=== PATIENT | female | born 1970 | race Caucasian/White ===

== ENCOUNTER → 2016-11-13 | Outpatient (CLI) | payer BC ==
--- NOTE | 2016-11-13 15:31 | REPMRS ---
Patient History The patient states she had a clinical breast exam in 11/29 Family history of premenopausal breast cancer in maternal cousin at age 43 and colorectal cancer in maternal uncle at age 50 or over. Digital Woman Screen Mammo: November 13, 2016 - Exam #: [id number] Bilateral CC and MLO view(s) were taken. Technologist: Chana Carcamo, Technologist Prior study comparison: October 22, 2015, digital woman screen mammo performed at [facility]. October 23, 2014, digital woman screen mammo performed at [facility]. FINDINGS: The breast tissue is heterogeneously dense. This may lower the sensitivity of mammography. There has been no change in the appearance of the mammogram from the prior studies. There is a moderate amount of residual fibroglandular tissue which is fairly symmetric. There is no interval development of dominant mass, areas of architectural distortion, or clustered microcalcification typical of malignancy. ASSESSMENT: BI-RADS/ACR category 1 mammogram. Negative. Recommendation Routine screening mammogram in 1 year (for women over age 40). This mammogram was interpreted with the aid of an FDA-approved computer-aided dectection system. Electronically Signed By: Koffi Rojas MD 11/13/16 1575
== END ==
LOC: M WHC 13:59
PROVIDERS: ATTEND Nurse Practitioner Family
DX: Z12.31 Encounter for screening mammogram for malignant neoplasm of breast (principal); Z80.3 Family history of malignant neoplasm of breast

== ENCOUNTER → 2016-11-13 | Outpatient (REF) | payer BC | LOC: M SFHCWAGY 14:41 | PROVIDERS: ATTEND Nurse Practitioner Family | DX: Z12.4 Encounter for screening for malignant neoplasm of cervix (principal); R87.610 Atypical squamous cells of undetermined significance on cytologic smear of cervix (ASC-US) ==

== ENCOUNTER 2017-03-13 07:30 | Outpatient (RCR) | payer BC | END 2017-03-15 | LOC: M OT 07:30 | PROVIDERS: ATTEND Physician Assistant Surgical | DX: Z51.89 Encounter for other specified aftercare (principal); M77.11 Lateral epicondylitis, right elbow ==

== ENCOUNTER 2017-03-29 09:08 | Outpatient (RCR) | payer BC | END 2017-04-14 | LOC: M OT 09:08 | PROVIDERS: ATTEND Physician Assistant Surgical | DX: Z51.89 Encounter for other specified aftercare (principal); M77.11 Lateral epicondylitis, right elbow ==

== ENCOUNTER → 2017-11-14 | Outpatient (CLI) | payer MEDICAID | LOC: M WHC 08:35 | DX: Z12.31 Encounter for screening mammogram for malignant neoplasm of breast (principal); Z80.3 Family history of malignant neoplasm of breast ==

== ENCOUNTER → 2017-11-14 | Outpatient (REF) | payer MEDICAID | LOC: M SFHCWAGY 09:07 | DX: Z12.4 Encounter for screening for malignant neoplasm of cervix (principal) ==

== ENCOUNTER → 2018-07-08 | Outpatient (REF) | payer MEDICAID ==
[2018-07-08 13:38] LABS: FOLLICLE STIMULATING HORMONE 28.8 mIU/mL; LUTEINIZING HORMONE 36.8 mIU/mL
[2018-07-12 00:08] LABS: ESTRIOL SERUM <0.1 ng/mL (.)
== END ==
LOC: M LAB REF 12:39
PROVIDERS: ATTEND Family Medicine
DX: N94.6 Dysmenorrhea, unspecified (principal)

== ENCOUNTER → 2018-11-14 | Outpatient (CLI) | payer OTHER ==
[~2018-11-14] MED LIST: BUPR150T3 PO; MOTR200T44 PO; TOPA50TA8 PO; VALA500T5 PO
--- NOTE | 2018-11-14 12:27 | REPMRS ---
Patient History The patient states she had a clinical breast exam in 11/2018. Family history of premenopausal breast cancer at age 43 in maternal cousin, colorectal cancer at age 50 or over in maternal uncle, breast cancer at age 30 in maternal cousin. No Hormone Replacement Therapy 3D TOMOSYNTHESIS WAS PERFORMED. Digital Woman Screen Mammo: November 14, 2018 - Exam #: [id number] Bilateral CC and MLO view(s) were taken. Technologist: Akanksha Byers, Technologist Prior study comparison: November 14, 2017, digital woman screen mammo performed at [facility]. November 13, 2016, digital woman screen mammo performed at [facility] [place]. FINDINGS: The breast tissue is heterogeneously dense. This may lower the sensitivity of mammography. There has been no change in the appearance of the mammogram from the prior studies. There is a moderate amount of residual fibroglandular tissue which is fairly symmetric. There is no interval development of dominant mass, areas of architectural distortion, or clustered microcalcification typical of malignancy. Assessment: BI-RADS/ACR category 1 mammogram. Negative Mammogram. Recommendation Routine screening mammogram in 1 year (for women over age 40). This mammogram was interpreted with the aid of an FDA-approved computer-aided dectection system. Electronically Signed By: Koffi Rojas MD 11/14/18 [id number]
== END ==
LOC: M WHC 08:34
PROVIDERS: ATTEND Nurse Practitioner Family
DX: Z12.31 Encounter for screening mammogram for malignant neoplasm of breast (principal)

== ENCOUNTER → 2019-11-19 | Outpatient (CLI) | payer OTHER ==
--- NOTE | 2019-11-19 10:01 | REPMRS ---
Patient History The patient states she had a clinical breast exam in November 2019. Patient is postmenopausal. Family history of premenopausal breast cancer at age 43 in maternal cousin, colorectal cancer at age 50 or over in maternal uncle, breast cancer at age 30 in maternal cousin. No Hormone Replacement Therapy Digital Woman Screen Mammo: November 19, 2019 - Exam #: [id number] Bilateral CC and MLO view(s) were taken. Technologist: Isa Tamayo Technologist Prior study comparison: November 14, 2018, bilateral digital woman screen mammo performed at [facility]. November 14, 2017, digital woman screen mammo performed at [facility]. November 13, 2016, digital woman screen mammo performed at [facility]. FINDINGS: The breast tissue is heterogeneously dense. This may lower the sensitivity of mammography. The Volpara volumetric breast density category is: C. There is a moderate amount of heterogeneously dense fibroglandular tissue which is fairly symmetric. There is no interval development of dominant mass, architectural distortion, or grouped microcalcification typical of malignancy. There has been no change in the appearance of the mammogram from the prior studies. 3-D tomosynthesis shows no additional findings. Assessment: BI-RADS/ACR category 1 mammogram. Negative Mammogram. Recommendation Routine screening mammogram of both breasts in 1 year (for women over age 40). This patient's Lifetime Breast Cancer RIsk is estimated at 11.2 %. This mammogram was interpreted with the aid of an FDA-approved computer-aided dectection system. Electronically Signed By: Choco Robison MD 11/19/19 [id number]
== END ==
LOC: M WHC 08:04
PROVIDERS: ATTEND Nurse Practitioner Family
DX: Z12.31 Encounter for screening mammogram for malignant neoplasm of breast (principal); Z78.0 Asymptomatic menopausal state

== ENCOUNTER → 2019-11-19 | Outpatient (REF) | payer OTHER | LOC: M SFHCWAGY 18:11 | PROVIDERS: ATTEND Nurse Practitioner Family | DX: Z12.4 Encounter for screening for malignant neoplasm of cervix (principal); R87.610 Atypical squamous cells of undetermined significance on cytologic smear of cervix (ASC-US) ==

== ENCOUNTER → 2020-07-02 | Outpatient (CLI) | payer OTHER | LOC: M LABSMTC 14:20 | PROVIDERS: ATTEND Family Medicine | DX: Z20.828 Contact with and (suspected) exposure to other viral communicable diseases (principal) ==

== ENCOUNTER → 2020-11-23 | Outpatient (CLI) | payer OTHER ==
[~2020-11-23] MED LIST changes: +BUPR150T12 PO; -BUPR150T3 PO
--- NOTE | 2020-11-23 09:42 | REPMRS ---
Patient History The patient states she had a clinical breast exam in November 23, 2020. Patient is postmenopausal. Family history of premenopausal breast cancer at age 43 in maternal cousin, colorectal cancer at age 50 or over in maternal uncle, breast cancer at age 30 in maternal cousin. Took hormonal contraceptives for 20 years. Patient states no breast complaints today. Patient has signed MRS History Sheet. Digital Woman Screen Mammo: November 23, 2020 - Exam #: [id number] Bilateral CC and MLO view(s) were taken. Technologist: RT Felix Prior study comparison: November 19, 2019, bilateral digital woman screen mammo performed at [facility]. November 14, 2018, bilateral digital woman screen mammo performed at [facility]. FINDINGS: The breast tissue is heterogeneously dense. This may lower the sensitivity of mammography. Screening. Digital screening (2D) mammography was performed bilaterally in the CC and MLO projections. Additionally, breast tomosynthesis (3D mammography) was performed bilaterally in the CC and MLO projections. Todays exam was compared to the prior exams. By history, the patient has no complaints of a palpable breast abnormality or other significant breast complaints. The breasts are unchanged in size and shape. Once again, dense heterogenous fibroglandular elements are seen bilaterally in a stable appearing pattern but to such a degree that the sensitivity of the mammogram in detecting cancer is decreased.There are no latricia-soft tissue densities or spiculated masses. There is no internal architectural distortion. There are no suspicious latricia-calcific clusters. Skin thickening or nipple retraction is not present. IMPRESSION: BI-RADS Category 2- Benign Findings. There is no evidence of malignant alteration of the breasts. Followup examination recommended in one year. The Volpara volumetric breast density category is C, the breasts are heterogenously dense which may obscure small masses. This mammogram was read with the assistance of [email or web address],an FDA approved computer aided detection system for mammography. The lifetime Tyrer-Cuzick score is 11% Negative x-ray reports should not delay surgical consultation if a dominant or clinically suspicious mass is present. Not all breast cancers can be identified by mammography. Therefore, we recommend that you continue to perform regular breast self-examination and physical examination and then promptly contact your physician of any concerns or changes. Adenosis and dense breasts may obscure an underlying neoplasm. Assessment: BI-RADS/ACR category 2 mammogram. Benign Findings. Recommendation Routine screening mammogram of both breasts in 1 year. Electronically Signed By: Deyvi Landa DO 11/23/20 0941
== END ==
LOC: M WHC 07:56
PROVIDERS: ATTEND Nurse Practitioner Women's Health
DX: Z12.31 Encounter for screening mammogram for malignant neoplasm of breast (principal); Z92.0 Personal history of contraception

== ENCOUNTER → 2020-11-23 | Outpatient (REF) | payer OTHER | LOC: M SFHCWAGY 12:52 | PROVIDERS: ATTEND Nurse Practitioner Women's Health | DX: Z12.4 Encounter for screening for malignant neoplasm of cervix (principal) ==

== ENCOUNTER → 2021-04-13 | Outpatient (CLI) | payer OTHER ==
--- NOTE | 2021-04-13 08:37 | REP ---
INDICATION: PAIN. COMPARISON: None. TECHNIQUE: Five views FINDINGS: There is mild posterior disc space narrowing at every level. There is mild anterior lipping at every level. Vertebral body height and alignment is within normal limits. Mild degenerative changes are seen involving the facet joints bilaterally L3-4 to L5-S1. IMPRESSION: Mild degenerative changes. <Electronically signed by Deyvi Landa > 04/13/21 [id number]
--- NOTE | 2021-04-13 09:04 | REP ---
INDICATION: PAIN COMPARISON: None. TECHNIQUE: AP and frog-lateral views of the right and left hip FINDINGS: Subtle increased sclerosis along the acetabular roof noted bilaterally. Joint spaces themselves are otherwise relatively symmetric and normal. There is no evidence for acute or healed injury. Surrounding soft tissues are unremarkable.. IMPRESSION: Essentially symmetric age-appropriate examination. <Electronically signed by Ron Carson > 04/13/21 0900
== END ==
LOC: M WUC 08:03
PROVIDERS: ATTEND Family Medicine
DX: M48.061 Spinal stenosis, lumbar region without neurogenic claudication (principal); M25.559 Pain in unspecified hip

== ENCOUNTER → 2021-07-15 | Outpatient (CLI) | payer OTHER ==
[~2021-07-15] MED LIST changes: +CELE100C PO; +CO Q10CA PO; +MYRB50TA PO; +VITMTA PO
== END ==
LOC: M LABSMTC 10:38
PROVIDERS: ATTEND Anesthesiology
DX: Z01.818 Encounter for other preprocedural examination (principal); Z11.52 Encounter for screening for COVID-19

== ENCOUNTER 2021-07-20 07:25 | Day surgery (SDC) | payer OTHER ==
[~2021-07-20] VITALS: Ht 157.5 cm; Wt 59.0 kg
[~2021-07-20 07:25] MED LIST changes: +CLINDAMYCIN 600 MG in IV 1 EA IV ONE; +LR 1,000 ML IV ONE
[2021-07-20] MEDS ORDERED: LIDOCAINE 2% 100MG/5ML SDV (FOR ANES.) As Ordered ONE (07:53)
[2021-07-20] MEDS ORDERED: propofoL 500 MG/50 ML VIAL As Ordered ONE (07:54)
[2021-07-20] MEDS ORDERED: MIDAZOLAM INJ 2MG/2ML VIAL (J2250 PER 1MG) As Ordered ONE (07:54)
[2021-07-20] MEDS ORDERED: fentaNYL 100 MCG/2 ML INJECTION (J3010) As Ordered ONE (07:54)
[2021-07-20] MEDS ORDERED: LIDOCAINE 1% MDV 20ML VIAL As Ordered ONE (08:04)
[2021-07-20] MEDS ORDERED: BUPIVACAINE HCL 0.5% 10ML VIAL As Ordered ONE (08:04)
[2021-07-20] MEDS ORDERED: dexameTHASONE 4 MG/ML 1ML VIAL (J1100 PER 1MG) As Ordered ONE (08:05)
[2021-07-20] MEDS ORDERED: ONDA4TAB6 PO (10:32)
[2021-07-20] MEDS ORDERED: HYDR-3713 PO (10:34)
[2021-07-20 11:10] VITALS: BP 116/62
== END 2021-07-20 11:26 | disposition home or self-care (01) ==
LOC: M SDC 07:25
PROVIDERS: ATTEND Podiatrist Foot & Ankle Surgery
DX: M21.612 Bunion of left foot (principal); F17.218 Nicotine dependence, cigarettes, with other nicotine-induced disorders; F41.9 Anxiety disorder, unspecified; F32.9 Major depressive disorder, single episode, unspecified; Z79.899 Other long term (current) drug therapy; Z88.0 Allergy status to penicillin; Z88.2 Allergy status to sulfonamides; Z88.8 Allergy status to other drugs, medicaments and biological substances
CPT/HCPCS: 28296; 88300; C1713; J1100; J2250; J3010

== ENCOUNTER → 2021-08-22 | Outpatient (CLI) | payer OTHER ==
[~2021-08-22] MED LIST changes: -CLINDAMYCIN 600 MG in IV 1 EA IV ONE; +HYDR-3713 PO; -LR 1,000 ML IV ONE; +ONDA4TAB6 PO
[2021-08-22 16:48] LABS: APPEARANCE, URINE HAZY (CLEAR); BACTERIA, URINE AUTO NEGATIVE (NEGATIVE); BILIRUBIN, URINE AUTO NEGATIVE (NEGATIVE); BLOOD, URINE BLOOD NEGATIVE (NEGATIVE); COLOR, URINE YELLOW (YELLOW); GLUCOSE, URINE (UA) AUTO NEGATIVE (NEGATIVE); KETONE, URINE AUTO NEGATIVE (NEGATIVE); LEUKOCYTE ESTERASE, URINE AUTO 2+ (NEGATIVE); NITRITE, URINE AUTO NEGATIVE (NEGATIVE); PROTEIN, URINE AUTO NEGATIVE (NEGATIVE); RBC, URINE AUTO 1 /HPF (0-3); SPECIFIC GRAVITY URINE AUTO 1.009 (1.002-1.035); SQUAMOUS EPITHELIAL CELL UR AU 1 /HPF (0-6); UROBILINOGEN, URINE AUTO 0.2 mg/dL (0.0-2.0); WBC, URINE AUTO 20 /HPF (0-3)
== END ==
LOC: M WUC 11:05
DX: N39.0 Urinary tract infection, site not specified (principal)

== ENCOUNTER → 2021-11-25 | Outpatient (CLI) | payer OTHER | LOC: M WHC 10:17 | PROVIDERS: ATTEND Nurse Practitioner Women's Health | DX: Z12.31 Encounter for screening mammogram for malignant neoplasm of breast (principal) ==

== ENCOUNTER → 2022-01-17 | Outpatient (REF) | payer OTHER | LOC: M LAB REF 11:28 | PROVIDERS: ATTEND Family Medicine | DX: Z11.59 Encounter for screening for other viral diseases (principal); W57.XXXA Bitten or stung by nonvenomous insect and other nonvenomous arthropods, initial encounter ==

== ENCOUNTER → 2022-02-22 | Outpatient (CLI) | payer OTHER | LOC: M WUC 10:00 | PROVIDERS: ATTEND Physician Assistant | DX: S90.31XA Contusion of right foot, initial encounter (principal) ==

== ENCOUNTER → 2023-01-09 | Outpatient (CLI) | payer OTHER | LOC: M WUC 11:53 | PROVIDERS: ATTEND Nurse Practitioner Adult Health | DX: M54.50 Low back pain, unspecified (principal) ==

== ENCOUNTER → 2023-02-09 | Outpatient (CLI) | payer OTHER | LOC: M PLAIMG 09:50 | PROVIDERS: ATTEND Nurse Practitioner Adult Health | DX: M25.552 Pain in left hip (principal) ==

== ENCOUNTER → 2023-08-13 | Outpatient (CLI) | payer OTHER ==
[~2023-08-13] MED LIST changes: +CVS1CAP2 PO; +LORA-753 PO; +THERTAB52 PO; +VIBE75TA PO
== END ==
LOC: M EKG 06:09
PROVIDERS: ATTEND Anesthesiology
DX: Z01.818 Encounter for other preprocedural examination (principal)

== ENCOUNTER → 2023-08-23 | Day surgery (SDC) | payer OTHER ==
[~2023-08-23] VITALS: Ht 157.5 cm; Wt 60.3 kg
[~2023-08-23] MED LIST changes: +KETOROLAC 60MG 2ML VIAL As Ordered ONE; +LIDOCAINE 2% 100MG/5ML SDV (FOR ANES.) As Ordered ONE; +LR 1,000 ML IV SCH; +MIDAZOLAM INJ 2MG/2ML VIAL As Ordered ONE; +ONDANSETRON 4MG 2ML VIAL As Ordered ONE; +fentaNYL 100 MCG/2 ML INJECTION As Ordered ONE; +propofoL 200 MG/20 ML VIAL As Ordered ONE
[2023-08-23] MEDS: ceFAZolin SOD 2 GM in IV 1 EA IV ONE (09:21)
[2023-08-23] MEDS: LIDOCAINE 1% MDV 20ML VIAL As Ordered ONE (09:24)
[2023-08-23 10:05] VITALS: BP 111/64; TEMP 97.6; O2SAT 98
== END | disposition home or self-care (01) ==
LOC: M SDC 07:08
PROVIDERS: ATTEND Podiatrist Foot & Ankle Surgery
DX: T84.84XA Pain due to internal orthopedic prosthetic devices, implants and grafts, initial encounter (principal); Y79.2 Prosthetic and other implants, materials and accessory orthopedic devices associated with adverse incidents; Z86.16 Personal history of COVID-19; Z79.899 Other long term (current) drug therapy; Z88.0 Allergy status to penicillin; Z88.2 Allergy status to sulfonamides; Z88.6 Allergy status to analgesic agent
CPT/HCPCS: 20680; J0665; J0690; J1100; J1885; J2250; J2405; J3010

== ENCOUNTER → 2024-08-08 | Outpatient (CLI) | payer OTHER ==
[~2024-08-08] MED LIST changes: -KETOROLAC 60MG 2ML VIAL As Ordered ONE; -LIDOCAINE 2% 100MG/5ML SDV (FOR ANES.) As Ordered ONE; -LR 1,000 ML IV SCH; -MIDAZOLAM INJ 2MG/2ML VIAL As Ordered ONE; +ONDA-282 PO; -ONDA4TAB6 PO; -ONDANSETRON 4MG 2ML VIAL As Ordered ONE; -fentaNYL 100 MCG/2 ML INJECTION As Ordered ONE; -propofoL 200 MG/20 ML VIAL As Ordered ONE
[2024-08-08 07:21] LABS: HEMATOCRIT 40.5 % (36.0-47.0); HEMOGLOBIN 13.9 g/dl (12.0-15.5); MEAN CORPUSCULAR HGB CONC 34.3 g/dl (32.0-36.5); MEAN CORPUSCULAR VOLUME 93.3 fl (80.0-96.0); PLATELET COUNT, AUTOMATED 250 10^3/uL (150-450); RED BLOOD COUNT 4.34 10^6/uL (4.00-5.40); WHITE BLOOD COUNT 4.2 10^3/uL (4.0-10.0)
[2024-08-08 07:53] LABS: ALKALINE PHOSPHATASE 87 U/L (35-104); ALT/SGPT 16 U/L (7.0-40); AST/SGOT 14 U/L (<34); BILIRUBIN,TOTAL 0.4 MG/DL (0.3-1.2); BLOOD UREA NITROGEN 14 MG/DL (9-23); CALCIUM LEVEL 9.4 MG/DL (8.5-10.1); CARBON DIOXIDE LEVEL 27 MMOL/L (20-31); CHLORIDE LEVEL 112 MMOL/L (98-107); CREATININE FOR GFR 0.76 MG/DL (0.55-1.30); GLOMERULAR FILTRATION RATE > 60.0 (>51); GLUCOSE, FASTING 92 MG/DL (60-100); POTASSIUM SERUM 4.4 MMOL/L (3.5-5.1); SODIUM LEVEL 145 MMOL/L (136-145); TOTAL PROTEIN 6.7 G/DL (5.7-8.2)
== END ==
LOC: M RAD 06:10
PROVIDERS: ATTEND Urology
DX: N39.3 Stress incontinence (female) (male) (principal); R00.1 Bradycardia, unspecified

== ENCOUNTER 2024-08-18 08:52 | Day surgery (SDC) | payer OTHER ==
[~2024-08-18] VITALS: Ht 157.5 cm; Wt 55.3 kg
[2024-08-18] MEDS ORDERED: NS (Normal Saline) 0.9% 1,000 ML IV SCH ×2 (09:40→10:45)
[2024-08-18] MEDS ORDERED: MIDAZOLAM INJ 2MG/2ML VIAL As Ordered ONE (09:51)
[2024-08-18] MEDS ORDERED: LIDOCAINE 2% 100MG/5ML SDV (FOR ANES.) As Ordered ONE (09:51)
[2024-08-18] MEDS ORDERED: propofoL 200 MG/20 ML VIAL As Ordered ONE (09:51)
[2024-08-18] MEDS ORDERED: fentaNYL 100 MCG/2 ML INJECTION As Ordered ONE (09:51)
[2024-08-18] MEDS: ceFAZolin SOD 2 GM in IV 1 EA IV ONE (10:21)
[2024-08-18] MEDS: LIDOCAINE 2% 5ML JELLY UROJET As Ordered ONE (10:34)
[2024-08-18] MEDS ORDERED: MACR100C43 PO (10:43)
[2024-08-18] MEDS ORDERED: ONDANSETRON 4MG 2ML VIAL IV PRN (10:45)
[2024-08-18] MEDS ORDERED: HYDROMORPHONE HCL 0.5 MG/ 0.5 ML SYRINGE IV PRN (10:45)
[2024-08-18] MEDS ORDERED: oxyCODONE 5MG TAB PO PRN (10:45)
[2024-08-18] MEDS ORDERED: fentaNYL 100 MCG/2 ML INJECTION IV PRN (10:45)
[2024-08-18] MEDS ORDERED: ONDANSETRON 4MG 2ML VIAL As Ordered ONE (11:01)
[2024-08-18 12:15] VITALS: BP 113/67; TEMP 97.8; O2SAT 98
== END 2024-08-18 12:15 | disposition home or self-care (01) ==
LOC: M SDC 08:52
PROVIDERS: ATTEND Urology
DX: N39.3 Stress incontinence (female) (male) (principal); E78.5 Hyperlipidemia, unspecified; F12.10 Cannabis abuse, uncomplicated; F32.A Depression, unspecified; Z79.899 Other long term (current) drug therapy; Z88.2 Allergy status to sulfonamides; Z88.8 Allergy status to other drugs, medicaments and biological substances
CPT/HCPCS: 51715; J0690; J1100; J2250; J2405; J3010; L8606